=== PATIENT | female | born 1995 | race Caucasian/White ===

== ENCOUNTER → 2019-11-29 14:38 | Outpatient (CLI) | payer MEDICAID, SELFPAY ==
[2019-11-29 16:10] LABS: Absolute Lymphocyte Count 2.13 X10^3/uL (0.83-4.51); Absolute Neutrophil Count 11.4 X10^3/uL (2.0-7.7); Basophil# 0.03 X10^3/uL; Basophil% 0.2 % (0-1); Eosinophil# 0.04 X10^3/uL; Eosinophils% 0.3 % (0-5); Hematocrit 36.8 % (37-47); Hemoglobin 12.3 g/dL (12.0-15.0); Lymphocyte # 2.13 X10^3/ul (4.0); Mean Corp Hgb Conc 33.4 g/dL (32-36); Mean Corpuscular Hgb 28.6 pg (27.0-32.0); Mean Corpuscular Volume 85.6 fL (81-99); Mean Platelet Vol. 10.6 fl (6.2-12.0); Monocyte% 4.2 % (0-10); NRBC Flagged by Analyzer 0 % (0-5); Neutrophil # 11.36 X10^3/uL (2.7-7.7); Neutrophil % 79.7 % (47-70); Platelet Count 305 K/mm3 (150-450); RBC Distribution Width CV 12.6 % (11.6-14.6); RBC Distribution Width SD 38.9 fl (35.1-43.9); White Blood Count 14.2 K/mm3 (4.4-11.0)
[2019-11-29 16:13] LABS: Color, Urine Yellow (Yellow); Glucose, Dipstick 50 mg/dl (Normal); Ketone-Dipstick Negative (Negative); Leukocyte Esterase-Dipstick 25 /ul (Negative); Nitrite-Dipstick Negative (Negative); Occult Blood-Urine Negative /ul (Negative); Protein-Dipstick Negative (Negative); Specific Gravity, Urine 1.015 (1.002-1.030); Urine Bilirubin Dipstick Negative (Negative); Urine Clarity Sl. Cloudy (Clear); Urine Urobilinogen Normal (Normal); Urine pH 6.5 (5.0 - 8.0)
[2019-11-29 16:20] LABS: Amphetamine Urine VISTA NEGATIVE (<1000 ng/mL); Barbiturate Urine VISTA NEGATIVE (< 200 ng/mL); Benzodiazepine Urine VISTA NEGATIVE (< 200 ng/mL); Cocaine Urine VISTA NEGATIVE (< 300 ng/mL); Ecstacy Urine VISTA NEGATIVE (< 500 ng/mL); Methadone Urine VISTA NEGATIVE (< 300 ng/mL); PCP Urine VISTA NEGATIVE (< 25 ng/mL); THC Urine VISTA NEGATIVE (< 50 ng/mL); Vista UDS pH Range 7
[2019-11-29 16:30] LABS: Thyroid Stim Hormone (TSH) 1.11 uIU/mL (0.358-3.74)
[2019-11-30 10:34] LABS: HIV - WCH Non-Reactive (Nonreactive); Hepatitis B Surface Antigen Non-Reactive (Nonreactive); Hepatitis C Antibody Non-Reactive (Nonreactive); Rubella IgG 145.6 IU/mL
[2019-11-30 21:57] LABS: Prenatal RPR NONREACTIVE (NONREACTIVE)
== END ==
PROVIDERS: Visit Provider Obstetrics & Gynecology
DX: Z34.82 Encounter for supervision of other normal pregnancy, second trimester (principal)
CPT/HCPCS: 36415; 80307; 81002; 84443; 85025; 86703; 86762; 86803; 87340

== ENCOUNTER → 2019-12-27 10:20 | Outpatient (CLI) | payer MEDICAID, SELFPAY ==
[2019-12-27 12:52] LABS: Glucose Challenge Gest 1H 50g 83 mg/dL (70-140)
== END ==
PROVIDERS: Visit Provider Obstetrics & Gynecology
DX: Z34.83 Encounter for supervision of other normal pregnancy, third trimester (principal)
CPT/HCPCS: 36415; 82950

== ENCOUNTER → 2020-02-23 14:45 | Outpatient (CLI) | payer MEDICAID, SELFPAY | PROVIDERS: Visit Provider Obstetrics & Gynecology | DX: Z36.85 Encounter for antenatal screening for Streptococcus B (principal) | CPT/HCPCS: 87081 ==

== ENCOUNTER → 2020-03-12 17:46 | Outpatient (CLI) | payer MEDICAID, SELFPAY | PROVIDERS: Referring Provider Obstetrics & Gynecology; Visit Provider Obstetrics & Gynecology | DX: Z11.59 Encounter for screening for other viral diseases (principal) | CPT/HCPCS: 87635; C9803; U0003 ==

== ENCOUNTER 2020-03-15 07:00 | Inpatient (IN) | payer MEDICAID, SELFPAY ==
[2020-03-15] VITALS (24 sets, daily range): BP systolic 121–186; BP diastolic 65–125; PULSE 56–113; RESP 18; TEMP 36.2–37.6; O2SAT 98–99; BMI 34.5
[2020-03-15] MEDS: Lactated Ringers 1,000 ML 50 ML IV (07:40)
[2020-03-15 08:06] LABS: Absolute Lymphocyte Count 1.78 X10^3/uL (0.83-4.51); Absolute Neutrophil Count 7.1 X10^3/uL (2.0-7.7); Basophil# 0.01 X10^3/uL; Basophil% 0.1 % (0-1); Eosinophil# 0.03 X10^3/uL; Eosinophils% 0.3 % (0-5); Hemoglobin 10.7 g/dL (12.0-15.0); Lymphocyte # 1.78 X10^3/ul (4.0); Mean Corp Hgb Conc 32.4 g/dL (32-36); Mean Corpuscular Hgb 26.1 pg (27.0-32.0); Mean Corpuscular Volume 80.5 fL (81-99); Mean Platelet Vol. 10.8 fl (6.2-12.0); Monocyte# 0.45 X10^3/uL; Monocyte% 4.8 % (0-10); NRBC Flagged by Analyzer 0 % (0-5); Neutrophil # 7.05 X10^3/uL (2.7-7.7); Neutrophil % 75.5 % (47-70); Platelet Count 265 K/mm3 (150-450); RBC Distribution Width CV 13.2 % (11.6-14.6); RBC Distribution Width SD 37.8 fl (35.1-43.9); White Blood Count 9.4 K/mm3 (4.4-11.0)
[2020-03-15] MEDS: Oxytocin 30 units/NS 500 ml 30 UNITS/500 ML IV.SOLN IV (08:33)
--- NOTE | 2020-03-15 08:39 | PCM.HPOB.BLA ---
History and Physical Date of Admission: 03/15/20 Chief complaint: Induction of labor Present illness: 25-year-old G3, P1 at 40 weeks and 0 days with CANDELARIO 03/15/2020 by LMP arrives for induction of labor at term. Denies headache, visual changes, nausea vomiting, chest pain, shortness of breath, right upper quadrant pain. Denies vaginal bleeding or leakage of fluid. Patient states good movement Obstetric history: G1: SAB 10 weeks 06/25/2014 G2: 40-week female 08/25/2016 G3: Current Past medical history: Denies Past surgical history: Denies Locations: vitamin Allergies: Amoxicillin Family history: Denies history of DVT or PE Review of systems: Besides above pertinent positive for review of systems performed found to be negative Physical exam: Vital Signs Temp Pulse BP Pulse Ox 03/15/20 08:40 98.1 F 81 128/67 H 03/15/20 07:39 97.1 F L 109 H 136/71 H 99 General: Normal-appearing no acute distress HEENT: Normocephalic atraumatic no cervical lymphadenopathy Cardiac/respiratory: No accessory muscles used, no labored breathing Abdomen: Soft nontender. Gravid Pelvic: Cervical exam /-2 per nursing Extremities: No peripheral edema normal peripheral pulses Psych: Normal affect normal demeanor nonpressured speech heart tones: 120 /moderate variability/positive accelerations/negative D cells [place]: Few contractions Mom's Labs & Results 03/15/20 03/15/20 07:40 07:40 WBC 9.4 RBC 4.10 L Hgb 10.7 L Hct 33.0 L MCV 80.5 L MCH 26.1 L MCHC 32.4 RDW Std Deviation 37.8 RDW Coeff of [place] 13.2 Plt Count 265 MPV 10.8 Immature Gran % (Auto) 0.300 Neut % (Auto) 75.5 H Lymph % (Auto) 19.0 [place] % (Auto) 4.8 Eos % (Auto) 0.3 Baso % (Auto) 0.1 Absolute Neuts (auto) 7.1 Absolute Lymphs (auto) 1.78 Nucleated RBC % 0 Blood Type Pending Antibody Screen Pending Labs Blood Type: O RH: POSITIVE RPR/VDRL/Syphilis Nonreactive Rubella status Immune HbSAg Negative Date Done: 11/29/19 Chlamydia Negative Gonorrhea Negative HIV/AIDS Non-Reactive Group B Strep: Negative [facility] plan: 25-year-old G3, P1 at 40 weeks and 0 days arrives for induction of labor at term. -Admit to labor and delivery -CEFM -GBS negative -Pitocin induction -Anesthesia to see
--- NOTE | 2020-03-15 10:40 | PN.OBGYN_ITS ---
Subjective: Patient comfortable without epidural. Objective: Cervical exam: /-2 AROM clear fluid 1035 heart tones: 120/moderate variability/positive accelerations/negative D cells [place]: Every 5 to 10 minutes Pitocin: At 6 - Physical Exam Vitals/I&O's: Vital Signs Temp Pulse BP Pulse Ox 98.1 F 85 132/65 H 99 03/15/20 09:35 03/15/20 10:37 03/15/20 10:37 03/15/20 09:35 Weight: 214 lb Body Mass Index (BMI) 34.5 Intake and Output for Last 24 Hours 03/13/20 03/14/20 03/15/20 23:59 23:59 23:59 Intake Total 1.47 / 1.47 Output Total 300 / 300 Balance -298.53 / -298.53 Laboratory Results 03/15/20 07:40: WBC 9.4, RBC 4.10 L, Hgb 10.7 L, Hct 33.0 L, MCV 80.5 L, MCH 26.1 L, MCHC 32.4, RDW Std Deviation 37.8, RDW Coeff of [place] 13.2, Plt Count 265, MPV 10.8, Immature Gran % (Auto) 0.300, Neut % (Auto) 75.5 H, Lymph % (Auto) 19.0, [place] % (Auto) 4.8, Eos % (Auto) 0.3, Baso % (Auto) 0.1, Absolute Neuts (auto) 7.1, Absolute Lymphs (auto) 1.78, Nucleated RBC % 0 03/15/20 07:40: Blood Type O POSITIVE, Antibody Screen NEGATIVE Current Medications Acetaminophen (Tylenol) 325 - 650 mg PO Q4H PRN PRN PRN Reason: Pain Score 1-3/10 Al Hydroxide/Mg Hydroxide (Mylanta Ii) 15 - 30 ml PO Q4H PRN PRN PRN Reason: INDIGESTION Citric Acid/Sodium Citrate (Bicitra) 30 ml PO X1 PRN PRN Reason: Section Fentanyl Citrate (Sublimaze (100mcg Ampule)) 25 - 50 mcg IV Q2H PRN PRN PRN Reason: Pain Score 4-10/10 Lactated Ringer's () 500 mls @ 999 mls/hr IV .Q31M PRN PRN Reason: Epidural Lactated Ringer's () 500 mls @ 999 mls/hr IV .Q31M PRN PRN Reason: Corrective Measures Lactated Ringer's () 1,000 mls @ 50 mls/hr IV .Q20H [facility] Last Admin: 03/15/20 07:40 Dose: 50 mls/hr Documented by: Oxytocin/Sodium Chloride () 30 units in 500 mls @ 2 mls/hr IV .Q250H [facility] Last Infusion: 03/15/20 09:17 Dose: 4 mls/hr Documented by: Ondansetron HCl (Zofran) 4 mg IV Q4H PRN PRN PRN Reason: NAUSEA Prochlorperazine Edisylate (Compazine Iv) 10 mg IV Q6H PRN PRN PRN Reason: NAUSEA Sodium Chloride () 10 - 40 ml IV X1 PRN PRN Reason: SALINE FLUSH Medical Necessity - Tobacco Use Smoking Status: Former smoker Assessment/Plan Patient seen and examined, unchanged cervical exam. AROM at 1035 for clear fluid. Category 1 tracing continue to titrate Pitocin
[2020-03-15 12:35] LABS: Chlamydia Trachomatis by PCR Negative (Negative); Neisserai gonorrhoeae by PCR Negative (Negative); Probe Check PASS; Sample Adequacy Control PASS; Specimen Processing Control PASS
[2020-03-15] MEDS: Oxytocin 30 units/NS 500 ml 30 UNITS/500 ML IV.SOLN 334 UNITS IV (18:00)
--- NOTE | 2020-03-15 18:13 | PCM.OPRPT ---
Vaginal Delivery Maternal Presentation: Elective Induction Method of Induction: Pitocin Medical Reason for Induction: - - Term Amniotic Membrane Rupture Type: Artificial Amniotic Fluid Description: Clear Date of Procedure: 03/15/20 Pre-Operative Diagnosis: Term Post-Operative Diagnosis: Term Surgery/ Procedure Performed: Spontaneous Vaginal Delivery Description of Procedure: Called to room by nursing patient feeling pressure noted to be complete +2. Normal spontaneous vaginal delivery of a viable male , vertex position. Head and shoulders delivered with ease. Cord cut and clamp baby handed off to nursing. Placenta delivered via cord traction and fundal massage. No tears noted. EBL 300 cc Apgars 8 9
--- NOTE | 2020-03-15 18:17 | DCINST_ITS ---
Discharge Diet: No Restrictions Discharge Activity: Return to Normal Activity May resume sexual activity in: 2 weeks Weight Bearing Status: Weight bearing as tolerated Call your doctor if your incision/area has: Foul Smelling Discharge Call your doctor if you observe: Fever of 101 or Higher, Shortness of breath, Chest pain Additional Instructions: If you experience any of the following, contact your healthcare provider. * Bleeding that soaks a pad every hour for 2 hours * Fever 100.4 or higher * Unrelieved incision or abdominal pain * Swelling, redness, discharge or bleeding from your incision or episiotomy site * Your incision begins to separate * Problems urinating (including inability to urinate or burning while urinating). * Visual changes * Severe headache * Flu-like symptoms * Pain or redness in one of both of your breasts * Pain, warmth, tenderness or swelling in your legs, especially the calf area * Frequent nausea and vomiting * Symptoms of depression or anxiety If you experience any of the following, call 911 or go to the nearest Emergency Room. * Chest pain * Problems breathing * Seizure activity * Partial or complete paralysis of a body part, slurred speech, weakness or drooping of the face, or a sudden inability to walk or hold your balance Allergies/Adverse Reactions: Allergies amoxicillin Allergy (Verified 03/15/20 08:03) Rash Medications to take at Discharge Pnv No.95/Ferrous Fum/Folic AC [ Vitamins Tablet] 1 tab PO DAILY 03/15/20 Norgestimate-Ethinyl Estradiol [Sprintec 28 Day Tablet] 1 ea PO DAILY #84 tab 03/16/20 The following prescriptions were given: Norgestimate-Ethinyl Estradiol [Sprintec 28 Day Tablet] 1 ea PO DAILY #84 tab Transmission Status: Pending to [facility] Please Follow Up With: Bijan Harry MD When: 6 weeks Primary Care Physician: Care Physician,No Primary [Primary Care Provider] - Test Results: Test results from this visit will be discussed in further detail at your follow- up appointment, if applicable.
--- NOTE | 2020-03-15 18:17 | PCM.DCVAG ---
Discharge Diet: No Restrictions Discharge Activity: Return to Normal Activity May resume sexual activity in: 2 weeks Weight Bearing Status: Weight bearing as tolerated Call your doctor if your incision/area has: Foul Smelling Discharge Call your doctor if you observe: Fever of 101 or Higher, Shortness of breath, Chest pain Additional Instructions: If you experience any of the following, contact your healthcare provider. Bleeding that soaks a pad every hour for 2 hours Fever 100.4 or higher Unrelieved incision or abdominal pain Swelling, redness, discharge or bleeding from your incision or episiotomy site Your incision begins to separate Problems urinating (including inability to urinate or burning while urinating). Visual changes Severe headache Flu-like symptoms Pain or redness in one of both of your breasts Pain, warmth, tenderness or swelling in your legs, especially the calf area Frequent nausea and vomiting Symptoms of depression or anxiety If you experience any of the following, call 911 or go to the nearest Emergency Room. Chest pain Problems breathing Seizure activity Partial or complete paralysis of a body part, slurred speech, weakness or drooping of the face, or a sudden inability to walk or hold your balance Allergies/Adverse Reactions: Allergies amoxicillin Allergy (Verified 03/15/20 08:03) Rash Medications to take at Discharge Pnv No.95/Ferrous Fum/Folic AC [ Vitamins Tablet] 1 tab PO DAILY 03/15/20 Norgestimate-Ethinyl Estradiol [Sprintec 28 Day Tablet] 1 ea PO DAILY #84 tab 03/16/20 The following prescriptions were given: Norgestimate-Ethinyl Estradiol [Sprintec 28 Day Tablet] 1 ea PO DAILY #84 tab Transmission Status: Pending to [facility] Please Follow Up With: Bijan Harry MD When: 6 weeks Primary Care Physician: Care Physician,No Primary [Primary Care Provider] - Test Results: Test results from this visit will be discussed in further detail at your follow-up appointment, if applicable.
[2020-03-15] MEDS: 0.9% Saline Lock 10 ML Syringe IV (19:02)
[2020-03-15] MEDS: Ibuprofen 600 MG Tablet PO (19:27)
--- NOTE | 2020-03-15 19:28 | NURSING ---
pitocin order to run at 999cc for entire bag per Dr Fleming at bedside
[2020-03-16] VITALS (9 sets, daily range): BP systolic 120–138; BP diastolic 58–97; PULSE 89–116; RESP 16–20; TEMP 36.8–37.4; O2SAT 97–98
[2020-03-16] MEDS: Ibuprofen 600 MG Tablet PO (05:03)
--- NOTE | 2020-03-16 09:50 | PN.OBGYN_ITS ---
Subjective: No overnight complaints. Pain well controlled. Minimal lochia vaginal bleeding - Physical Exam Vitals/I&O's: Vital Signs Temp Pulse Resp BP Pulse Ox 99.4 F H 92 16 129/71 H 98 03/16/20 08:08 03/16/20 08:08 03/16/20 08:08 03/16/20 08:08 03/16/20 08:08 Oxygen Delivery Method Room Air Weight: 214 lb Body Mass Index (BMI) 34.5 Intake and Output for Last 24 Hours 03/14/20 03/15/20 03/16/20 23:59 23:59 23:59 Intake Total 1999. / 900 / 900 Output Total 1700 / 1700 700 / 700 Balance 300.01 / 300.01 200 / 200 General: Alert, Oriented x3, Cooperative, No apparent distress HEENT: Atraumatic, Normocephalic Oral: Moist Mucosa Neck: Supple Abdomen: Bowel Sounds Present, Soft, Non Tender, Gravid - Fundus firm and below umbilicus Extremities: No clubbing, No cyanosis, No edema Psych/Mental Status: Normal Affect, Appropriate, Alert and oriented to time, place, person, mood and affect Laboratory Results 03/15/20 10:35: Chlam trachomat DNA PCR Negative, N.gonorrhoeae DNA (PCR) Negative Current Medications Acetaminophen (Tylenol) 1,000 mg PO Q8H PRN PRN PRN Reason: Pain Score 1-3/10 Bisacodyl (Dulcolax) 10 mg RECTAL UD PRN PRN Reason: If no BM Dibucaine (Dibucaine) 1 applic TOPICAL TID PRN PRN; Protocol PRN Reason: Discomfort Hydrocortisone (Hytone) 1 applic TOPICAL TID PRN PRN; Protocol PRN Reason: Discomfort Ibuprofen (Motrin) 600 mg PO Q6H PRN PRN PRN Reason: Pain Score 1-3/10 Last Admin: 03/16/20 05:03 Dose: 600 mg Documented by: Ondansetron HCl (Zofran) 4 mg IV Q4H PRN PRN PRN Reason: Nausea Senna/Docusate Sodium (Senokot-S, Winter-Colace) 1 - 2 tablet PO DAILY PRN PRN PRN Reason: Constipation Simethicone (Mylicon) 80 mg PO PCHS PRN PRN Reason: Indigestion/Stomach pain Sodium Chloride () 5 - 15 ml IV UD PRN PRN Reason: SALINE FLUSH Last Admin: 03/15/20 19:02 Dose: 10 ml Documented by: Medical Necessity - Tobacco Use Smoking Status: Former smoker Assessment/Plan day 1 status post vaginal delivery. Pain well controlled. Bottlefeeding. Desires OCP for control to start 3 weeks . Okay to DC home if okay with lining cutter.
--- NOTE | 2020-03-16 17:00 | CASEMGMT ---
Social Work Assessment Labor and Delivery Unit Patient Address: [address] [place] [address] Phone number: [phone] Date of Referral: 03.15.2020 Time of Referral: 2229 Referred By: Dr. Bijan Harry Date of Intervention: 03.16.2020 Time of Intervention: 1699 Reason for Referral: General history of anxiety, depression; father of baby (FOB) in September of drug overdose. History obtained from: Medical records and mother of baby (JUAN DAVID) Naida Valverde Household composition: JUAN DAVID reports to have her own apartment since October 2019, and resides with daughter. Reports home situation is safe and adequate. Plans to take baby to this home at discharge. Patient's parent/guardian status: JUAN DAVID is a 25 year old but female. FOB is reported as a Erich Kaminski who in September 2019 from a drug overdose. JUAN DAVID reports was with FOB for 2 years prior to . Has been from , whose name is not identified, for the last 2.5 years. JUAN DAVID has a daughter from marriage, Darcie Valverde (born June 2014), who lives with JUAN DAVID. Darcie does have regular visitation with her father. [place] baby is to be named Ángel Kaminski (born on 03.15.2019). Medical History: JUAN DAVID is 3, para 1 now 2 after delivering Ángel. MOB reports care started early in [facility] with transfer of care to [place] at 24 weeks. MOB reports transfer of care due to feeling as if original WIRE TWISTING MACHINE OPERATOR was dismissive of MOB questions and concerns. Baby Ángel delivered at 8 pounds 4 ounces, Apgars 8 and 9 at 1 and 5 minutes of life respectively. Educational Status: High school. No reports of reading, writing, or learning comprehension issues. Financial Status: JUAN DAVID was working at [employer] but was laid off in the spring. JUAN DAVID has no current income, but reports her family has been helpful to her. JUAN DAVID does plan to seek a job as soon as she is able, as well as to establish paternity for this baby in order to look into survivors benefits through Social Security. Infant Supplies: MOB reports to have all needed supplies for the baby including a car seat and a safe sleep space. MOB reports to have bottles, formula, clothing, diapers, and wipes. Childcare/Caregiver(s): MOB will be primary caregiver of infant. Transportation: No reported issues or concerns with transportation. Programs/Agencies Involved: MOB is active with job and family services for Medicaid and food assistance. Active with WIC. Active with a counselor Divine at [facility] health services. Denies any other agency involvement. Plans for baby to follow-up with Dr. Hodgson for pediatric follow-up needs. Children Services/Legal Issues: MOB denies any type of legal issues or concerns for self. Denies any history of children services involvement. Behavioral Health Issues: Mental Health History: MOB reports history of being diagnosed with depression, anxiety, and depression. MOB reports from the ages of 12 to about 18 MOB did have suicidal ideations, but those have since resolved with adulthood. MOB denies any type of suicidal ideations, planning, intent or actions during adulthood or during this . JUAN DAVID did have an [place] depression screen completed in the care visit on 11.29.2019 with a score of 21. Retest this date score is now 19, still above the threshold for current depression. MOB reports has been in counseling at [facility] throughout this , and has felt this to be helpful. MOB reports she has been on medications off and on in the past, and it was discussed as an option during this but MOB declined due to concern about health of fetus. MOB reports receptivity at this point to getting started on medication, as acknowledges risk for depression again. Substance Use History: JUAN DAVID denies any history of substance use issues for herself. Denies any type of alcohol use during . Is a former tobacco smoker. Family History: Not discussed. Drug Screens: Negative drug screen on 11/29/2019. Family/Social Stressors: LAKESHIA by drug overdose in September. MOB reports the FOB did have a history of substance use issues, reportedly had some legal troubles and went to detention, upon coming out of detention was reportedly using substances again. JUAN DAVID has been laid off since the springtime and admits finances have been tight. Reports anxiety present during this . Support Systems: JUAN DAVID reports support from her sister Abeba and from MOB mother. Darcie's father does help with Darcie and gets her every weekend. Depression/Shaken Baby/Safe Sleeping discussed topics and written material material provided on all. Educated to psychosis as another factor in the mood and anxiety disorder spectrum. MOB reports intent for baby Ángel to sleep in his own sleep space. ASSESSMENT: Met with MOB and her Sister Abeba in room, introducing to self and social work role. Abeba stayed for only part of the assessment, as this script writer wanted to complete depression screening privately with the MOB. MOB with good eye contact, constricted affect, normal motor activity, slightly anxious mood. MOB endorses high anxiety during with difficulty sleeping due to racing thoughts and ruminations about things which have not even occurred in MOB life, such as human trafficking and not wanting MOB daughter to be out of MOB sight in the nighttime. MOB reports she has not been feeling such anxieties in regards to baby Ánegl, and at this point feels at peace with Ángel sleeping in his own room and in his own sleep space. MOB reports she has been active with counseling and plans to continue with counseling, and acknowledges the need to have good support. MOB plans to call at the beginning of the week for her appointment. MOB expresses realization of risk for depression again, in light of history of such and as well as stressors in the MOB life during this . MOB does have current symptoms of depression present as evidenced by a score of 19 on the [place] depression screen. MOB does show symptoms of anxiety via the depression screen. MOB reports her family is a good support, as well as counseling. MOB denies any type of suicidal ideation or intent, and no endorsed thoughts of harming others. MOB is future oriented, expressing desire to get back to work and to establish paternity of the baby. MOB reports to have a hutchinson with this baby, and to love the baby. Baby slept in the bedside crib during social work assessment. MOB did make comment that baby has been sleeping for about 4 hours, and had no interest in eating since about 1230. This script writer encouraged MOB to wake baby up and start feeding process. While finances are tight at this time, MOB does have a place to live, supplies, and basic supplies to care for the needs of self and her children. MOB reports that her mother has been very helpful financially when MOB is in need. MOB accepting of the [facility] resource list, which is comprehensive and provides assistance in material names, financial help, and mental health services. mood and anxiety disorder packet provided and reviewed with MOB. MOB reports to feel she is ready to go home with the baby. Updated nursing staff to reports that baby had not fed in about 4 hours and this script writer's encouragement for MOB to feed the baby. Updated nursing to school score on the [place] depression screen, and that MOB voiced receptivity to getting started on medications. Nursing agrees to call WIRE TWISTING MACHINE OPERATOR about possibility of sending a prescription home with the MOB. No voiced concerns from nursing staff regarding mother child bonding or interactions. PLAN: MOB and infant to discharge home. MOB is active with job and family services, WIC, and mental health counseling already with intent to follow-up with all said services. MOB has a comprehensive resource list for [facility], and a mood and anxiety disorder packet which also includes resources for such. No other services requested or indicated. -GEOFFREY You, RENETTA *Information documented in this assessment generated with [employer]*
--- NOTE | 2020-03-16 20:04 | NURSING ---
Discussed antidepressant for patient, Clarice CALLAWAY called and Zoloft 50 mg sent to patients pharmacy. Patient cleared by social workMichele. Has appointment scheduled with therapy next week and following up in office in 2 weeks or sooner as needed.
== END 2020-03-16 20:10 | disposition home or self-care (01) | DRG 560 ==
PROVIDERS: Admitting Provider Obstetrics & Gynecology; Referring Provider Obstetrics & Gynecology; Visit Provider Obstetrics & Gynecology
DX: O80 Encounter for full-term uncomplicated delivery (principal); Z37.0 Single live birth; Z3A.40 40 weeks gestation of pregnancy; Z87.891 Personal history of nicotine dependence
CPT/HCPCS: 59025; 59050; 85025; 86850; 86900; 86901; 87491; 87591; 87635; 99218; C9803; J7120; A4216; G0378; U0003